=== PATIENT | female | born 1935 | race Caucasian/White ===

== ENCOUNTER 2017-12-08 12:03 | Inpatient (IN) ==
[2017-12-08] MEDS ORDERED: DIPH/TET/ACEL PERT BOOSTER VACCINE 0.5 ML VIAL IM ONE (12:23)
[2017-12-08 13:19] LABS: Basophils % 0.2 % (0.0-0.8); Eosinophils % 0.1 % (0.00-10.9); Hematocrit 38.6 VOL% (35.7-47.0); Hemoglobin 12.8 GM/DL (12.0-16.0); Immature Granulocytes % 1.5 %; Immature Granulocytes Absolute 0.26 #; Lymphocytes # 0.9 10*3/uL (1.4-4.0); Lymphocytes % 5.1 % (21.3-54.2); Mean Corpuscular HGB Conc 33.2 GM/DL (32-36); Mean Corpuscular Hemoglobin 31 PG (27-34); Mean Corpuscular Volume 94.1 FL (87-102); Mean Platelet Volume 10.4 FL (9.6-12.0); Monocytes # 0.7 10*3/uL (0.11-0.8); Monocytes % 4.3 % (1.7-12.7); Neutrophils # 15.4 10*3/uL (1.4-7.4); Neutrophils % 88.8 % (38.7-73.9); Platelet Count 264 T/CUMM (130-400); Red Cell Distribution Width 12.6 % (9.3-17.3); White Blood Count 17.4 T/CUMM (4-12)
[2017-12-08 13:40] LABS: Albumin 3.8 G/DL (3.4-5.0); Bilirubin,Total 0.4 MG/DL (0.2-1.0); Calcium 9.2 MG/DL (8.5-10.1); Osmolality,Calculated 266.7 MOS/KG (273-304); Potassium 3.7 MMOL/L (3.5-5.1); Total Protein 6.5 G/DL (6.4-8.3)
[2017-12-08 13:42] LABS: PT Patient Result 10.9 SECS; Partial Thromboplastin Time 22.7 SECS (0-40)
[2017-12-08] MEDS ORDERED: ACETAMINOPHEN 325 MG TABLET PO PRN (14:09)
[2017-12-08] MEDS ORDERED: ONDANSETRON 4 MG/2 ML VIAL IV PRN (14:09)
[2017-12-08] MEDS ORDERED: HYDROmorphone 2 MG/1 ML VIAL IV PRN (14:09)
[2017-12-08] MEDS ORDERED: PROPOFOL 200 MG/20 ML VIAL IV ONE (15:05)
[2017-12-08] MEDS ORDERED: LIDOCAINE 100 MG/5 ML SYRINGE ONE (15:05)
[2017-12-08] MEDS: LACTATED RINGERS 1,000 ML IV SCH (17:00)
[2017-12-08] MEDS ORDERED: NON-FORMULARY MEDICATION (Omeprazole [Omeprazole] 20 MG) PO SCH (17:00)
[2017-12-08] MEDS: HydrOXYzine PAMOATE 25 MG CAPSULE PO SCH ×2 (17:21→20:37)
[2017-12-08] MEDS: KETOROLAC 15 MG/1 ML VIAL IV SCH ×2 (17:22→20:37)
[2017-12-08] MEDS: ENOXAPARIN 40 MG/0.4 ML SYRINGE SUBCUT SCH (20:38)
[2017-12-09] MEDS: LACTATED RINGERS 1,000 ML IV SCH ×2 (00:40→09:43)
[2017-12-09] MEDS: HydrOXYzine PAMOATE 25 MG CAPSULE PO SCH ×6 (01:54→20:15)
[2017-12-09] MEDS: KETOROLAC 15 MG/1 ML VIAL IV SCH ×2 (01:54→09:12)
[2017-12-09 08:01] LABS: Basophils % 0.1 % (0.0-0.8); Eosinophils % 0.1 % (0.00-10.9); Hematocrit 32.7 VOL% (35.7-47.0); Hemoglobin 11.3 GM/DL (12.0-16.0); Immature Granulocytes % 0.4 %; Immature Granulocytes Absolute 0.04 #; Lymphocytes # 2.4 10*3/uL (1.4-4.0); Lymphocytes % 25.1 % (21.3-54.2); Mean Corpuscular HGB Conc 34.6 GM/DL (32-36); Mean Corpuscular Hemoglobin 31 PG (27-34); Mean Corpuscular Volume 90.3 FL (87-102); Mean Platelet Volume 10.1 FL (9.6-12.0); Monocytes # 0.7 10*3/uL (0.11-0.8); Monocytes % 7.7 % (1.7-12.7); Neutrophils # 6.4 10*3/uL (1.4-7.4); Neutrophils % 66.6 % (38.7-73.9); Platelet Count 229 T/CUMM (130-400); Red Blood Count 3.62 MC/CUMM (3.8-5.5); Red Cell Distribution Width 12.8 % (9.3-17.3); White Blood Count 9.7 T/CUMM (4-12)
[2017-12-09 08:18] LABS: Calcium 8.7 MG/DL (8.5-10.1); Osmolality,Calculated 271.2 MOS/KG (273-304); Potassium 4.3 MMOL/L (3.5-5.1)
[2017-12-09] MEDS: predniSONE 10 MG TABLET PO SCH (09:14)
[2017-12-09] MEDS: FUROSEMIDE 20 MG TABLET PO SCH (09:14)
[2017-12-09] MEDS: POTASSIUM CHLORIDE 20 MEQ TABLET PO SCH (09:14)
[2017-12-09] MEDS: EZETIMIBE 10 MG TABLET PO SCH (09:15)
[2017-12-09] MEDS: PANTOPRAZOLE 40 MG TABLET PO SCH (09:15)
[2017-12-09] MEDS: BUDESONIDE/FORMOTEROL 160-4.5 INHALER 6 GM INH SCH (09:16)
[2017-12-09] MEDS: ENOXAPARIN 40 MG/0.4 ML SYRINGE SUBCUT SCH (20:15)
[2017-12-10] MEDS: HydrOXYzine PAMOATE 25 MG CAPSULE PO SCH ×5 (01:37→17:15)
[2017-12-10 06:44] LABS: Hematocrit 35.2 VOL% (35.7-47.0); Hemoglobin 11.4 GM/DL (12.0-16.0)
[2017-12-10 07:28] LABS: Calcium 8.8 MG/DL (8.5-10.1); Osmolality,Calculated 276.7 MOS/KG (273-304); Potassium 4.5 MMOL/L (3.5-5.1)
[2017-12-10] MEDS: POTASSIUM CHLORIDE 20 MEQ TABLET PO SCH (09:22)
[2017-12-10] MEDS: EZETIMIBE 10 MG TABLET PO SCH (09:23)
[2017-12-10] MEDS: PANTOPRAZOLE 40 MG TABLET PO SCH (09:23)
[2017-12-10] MEDS: FUROSEMIDE 20 MG TABLET PO SCH (09:23)
[2017-12-10] MEDS: predniSONE 10 MG TABLET PO SCH (09:23)
[2017-12-10] MEDS: BUDESONIDE/FORMOTEROL 160-4.5 INHALER 6 GM INH SCH (09:27)
[2017-12-10 17:09] VITALS: BP 116/71
== END 2017-12-10 19:40 | disposition home or self-care (01) | DRG 964 ==
LOC: EDBD → EDUNIT# → N.ED 12:03 → N.EDINP 14:09 → N.3E 16:40
PROVIDERS: ADMIT Surgery; ATTEND Surgery